=== PATIENT | female | born 1935 | race Asian ===

== ENCOUNTER 2017-02-09 20:52 | Inpatient (IN) | payer MEDICARE, MEDICAID ==
[~2017-02-09] VITALS: Ht 162.6 cm; Wt 62.8 kg
[~2017-02-09 20:52] MED LIST: AMLO5TAB2 PO; ASPI325T4 PO; CARV-39 PO; DOCU240C53 PO; HYDR12.58 PO; LISI-170 PO; OXYB5TAB7 PO; SODI650T PO
[2017-02-09] MEDS ORDERED: TRAM50TA2 PO (21:26)
[2017-02-09] MEDS ORDERED: SODIUM CHLORIDE 0.9% 1,000 ML IV ONE (21:38)
[2017-02-09] MEDS ORDERED: ONDANSETRON 2MG/ML, 2ML ONE (21:46)
[2017-02-09] MEDS ORDERED: SODIUM CHLORIDE FLUSH 10ML SYR IVF ONE (22:00)
[2017-02-09] MEDS ORDERED: ONDANSETRON 2MG/ML, 2ML IVPush ONE (22:00)
[2017-02-09 22:47] LABS: ASPARTATE AMINO TRANSFERASE 16 U/L (15-37); BLOOD UREA NITROGEN 11 mg/dL (7-18)
[2017-02-09 22:53] LABS: IS PT STATUS REG ER OR PRE ER? YES
[2017-02-09 22:57] LABS: PATH.CAST-FLAG NOT PRESENT; SPERM-FLAG NOT PRESENT; SRC-FLAG NOT PRESENT; XTAL-FLAG NOT PRESENT; YLC-FLAG NOT PRESENT
[2017-02-09] MEDS ORDERED: OMNIPAQUE 350 MG/ML, 100ML BOTTLE ONE (23:16)
[2017-02-10] MEDS ORDERED: POLYETHYLENE GLYCOL 17 GM PACKET PO PRN (01:30)
[2017-02-10] MEDS ORDERED: DOCUSATE 100 MG CAPSULE PO PRN (01:30)
[2017-02-10] MEDS ORDERED: ACETAMINOPHEN 325 MG TABLET PO PRN (01:30)
[2017-02-10] MEDS ORDERED: ENOXAPARIN 40 MG/0.4 ML SQ SCH (01:30)
[2017-02-10] MEDS ORDERED: ONDANSETRON 2MG/ML, 2ML IVP PRN (01:30)
[2017-02-10] MEDS ORDERED: BISACODYL 10 MG SUPP PR PRN (01:30)
[2017-02-10] MEDS ORDERED: NS + 20MEQ KCL 1,000 ML IV ONE (02:53)
[2017-02-10] MEDS ORDERED: MORPHINE SULFATE 4 MG/ML, 1ML ONE ×2 (03:12→11:43)
[2017-02-10] MEDS: NS + 20MEQ KCL 1,000 ML IV SCH ×2 (03:12→23:39)
[2017-02-10] MEDS: MORPHINE SULFATE 4 MG/ML, 1ML IVPush PRN ×5 (03:14→23:38)
[2017-02-10] MEDS: SODIUM BICARBONATE 650 MG TABLET PO SCH (10:55)
[2017-02-10] MEDS: OXYBUTYNIN CHLORIDE 5 MG TABLET PO SCH (10:55)
[2017-02-10] MEDS: CARVEDILOL 25 MG TABLET PO SCH ×2 (10:55→23:38)
[2017-02-10] MEDS: LISINOPRIL 20 MG TABLET PO SCH ×2 (10:56→23:39)
[2017-02-10] MEDS: AMLODIPINE 5 MG TABLET PO SCH ×2 (10:56→23:39)
[2017-02-10] MEDS ORDERED: ENOXAPARIN 40 MG/0.4 ML ONE (11:01)
[2017-02-10] MEDS ORDERED: OMNIPAQUE 350 MG/ML, 75ML BOTTLE ONE (11:40)
[2017-02-10] MEDS: OXYcodone IR 5MG TABLET PO PRN (19:58)
[2017-02-10 23:44] VITALS: BP 139/68
[2017-02-11] MEDS: MORPHINE SULFATE 4 MG/ML, 1ML IVPush PRN (02:43)
[2017-02-11 03:55] VITALS: BP 137/77
[2017-02-11 05:22] LABS: BLOOD UREA NITROGEN 16 mg/dL (7-18)
[2017-02-11 07:07] VITALS: BP 159/88
[2017-02-11] MEDS: OXYcodone IR 5MG TABLET PO PRN ×2 (10:17→21:24)
[2017-02-11] MEDS: AMLODIPINE 5 MG TABLET PO SCH ×2 (10:17→21:24)
[2017-02-11] MEDS: ENOXAPARIN 40 MG/0.4 ML SQ SCH (10:17)
[2017-02-11] MEDS: OXYBUTYNIN CHLORIDE 5 MG TABLET PO SCH (10:18)
[2017-02-11] MEDS: LISINOPRIL 20 MG TABLET PO SCH ×2 (10:18→21:24)
[2017-02-11] MEDS: SODIUM BICARBONATE 650 MG TABLET PO SCH (10:18)
[2017-02-11] MEDS: CARVEDILOL 25 MG TABLET PO SCH ×2 (10:18→21:24)
[2017-02-11 13:39] VITALS: BP 119/55
[2017-02-11 14:44] LABS: POTASSIUM,URINE RANDOM 21 mmol/L
[2017-02-11 19:26] VITALS: BP 154/69
[2017-02-12 03:46] VITALS: BP 160/77
[2017-02-12] MEDS: OXYcodone IR 5MG TABLET PO PRN ×5 (03:55→22:58)
[2017-02-12 04:45] LABS: BLOOD UREA NITROGEN 16 mg/dL (7-18)
[2017-02-12 07:06] VITALS: BP 141/65
[2017-02-12] MEDS ORDERED: POTASSIUM CHLORIDE 20 MEQ TAB.ER.PRT PO ONE (08:00)
[2017-02-12] MEDS: LISINOPRIL 20 MG TABLET PO SCH ×2 (08:43→22:57)
[2017-02-12] MEDS: CARVEDILOL 25 MG TABLET PO SCH ×2 (08:43→22:57)
[2017-02-12] MEDS: SODIUM BICARBONATE 650 MG TABLET PO SCH (08:43)
[2017-02-12] MEDS: OXYBUTYNIN CHLORIDE 5 MG TABLET PO SCH (08:43)
[2017-02-12] MEDS: AMLODIPINE 5 MG TABLET PO SCH ×2 (08:44→22:57)
[2017-02-12 12:43] VITALS: BP 112/58
[2017-02-12] MEDS: ENOXAPARIN 40 MG/0.4 ML SQ SCH (12:49)
[2017-02-12] MEDS ORDERED: POLYETHYLENE GLYCOL 17 GM PACKET PO PRN (15:30)
[2017-02-12 18:40] VITALS: BP 168/49
[2017-02-13 01:44] VITALS: BP 174/70
[2017-02-13 04:33] LABS: BLOOD UREA NITROGEN 19 mg/dL (7-18)
[2017-02-13 07:12] VITALS: BP 163/68
[2017-02-13] MEDS: AMLODIPINE 5 MG TABLET PO SCH ×2 (07:34→19:55)
[2017-02-13] MEDS: SENNA/DOCUSATE TABLET PO SCH (07:34)
[2017-02-13] MEDS: OXYcodone IR 5MG TABLET PO PRN ×4 (07:34→20:33)
[2017-02-13] MEDS: LISINOPRIL 20 MG TABLET PO SCH ×2 (07:34→19:55)
[2017-02-13] MEDS: OXYBUTYNIN CHLORIDE 5 MG TABLET PO SCH (07:34)
[2017-02-13] MEDS: SODIUM BICARBONATE 650 MG TABLET PO SCH (07:34)
[2017-02-13] MEDS: CARVEDILOL 25 MG TABLET PO SCH ×2 (07:35→19:55)
[2017-02-13] MEDS ORDERED: LACTULOSE 20 GM/30 ML UDC PO ONE (11:00)
[2017-02-13] MEDS: ENOXAPARIN 40 MG/0.4 ML SQ SCH (11:27)
[2017-02-13 14:00] VITALS: BP 145/66
[2017-02-13] MEDS ORDERED: GOLYTELY 4,000ML ORAL.SOL PO ONE (18:00)
[2017-02-13 19:56] VITALS: BP 152/70
[2017-02-14] VITALS (7 sets, daily range): BP systolic 122–169; BP diastolic 61–78
[2017-02-14 04:57] LABS: BLOOD UREA NITROGEN 13 mg/dL (7-18)
[2017-02-14] MEDS ORDERED: FENTANYL PF 250 MCG/5ML ONE (07:16)
[2017-02-14] MEDS ORDERED: KETAMINE 10 MG/ML, 20ML ONE (07:16)
[2017-02-14] MEDS ORDERED: NEOSTIGMINE 1 MG/ML, 10ML ONE (07:47)
[2017-02-14] MEDS ORDERED: GLYCOPYRROLATE 0.2MG/1ML ONE (07:47)
[2017-02-14] MEDS ORDERED: CEFAZOLIN 1,000 MG ONE (07:47)
[2017-02-14] MEDS ORDERED: LIDOCAINE 2% 100MG/5ML SYRINGE ONE (07:47)
[2017-02-14] MEDS ORDERED: ONDANSETRON 2MG/ML, 2ML ONE (07:47)
[2017-02-14] MEDS ORDERED: PHENYLEPHRINE 10 MG/ML ONE (07:47)
[2017-02-14] MEDS ORDERED: METOPROLOL 1 MG/ML, 5ML ONE (07:47)
[2017-02-14] MEDS ORDERED: PROPOFOL 10 MG/ML, 20ML ONE (07:47)
[2017-02-14] MEDS ORDERED: ROCURONIUM 10 MG/ML ONE (07:47)
[2017-02-14] MEDS: OXYBUTYNIN CHLORIDE 5 MG TABLET PO SCH (09:00)
[2017-02-14] MEDS: LISINOPRIL 20 MG TABLET PO SCH ×3 (09:00→22:41)
[2017-02-14] MEDS: CARVEDILOL 25 MG TABLET PO SCH ×2 (09:00→21:07)
[2017-02-14] MEDS: AMLODIPINE 5 MG TABLET PO SCH ×2 (09:00→21:06)
[2017-02-14] MEDS: SODIUM BICARBONATE 650 MG TABLET PO SCH (09:00)
[2017-02-14] MEDS: SENNA/DOCUSATE TABLET PO SCH (09:00)
[2017-02-14] MEDS ORDERED: KETOROLAC 30 MG/1 ML ONE (09:57)
[2017-02-14] MEDS ORDERED: OXYcodone 5 MG/5 ML ORAL.SOL UDC ONE (09:58)
[2017-02-14] MEDS: KETOROLAC 30 MG/1 ML IVPush PRN (09:59)
[2017-02-14] MEDS ORDERED: OXYcodone 5 MG/5 ML ORAL.SOL UDC PO PRN (10:00)
[2017-02-14] MEDS ORDERED: METOPROLOL 1 MG/ML, 5ML IV PRN (10:00)
[2017-02-14] MEDS ORDERED: OXYcodone/APAP 5/325MG TABLET PO PRN (10:00)
[2017-02-14] MEDS ORDERED: hydrALAzine 20 MG/ML, 1ML IV PRN (10:00)
[2017-02-14] MEDS ORDERED: PROMETHAZINE 25 MG/ML, 1ML IV PRN (10:00)
[2017-02-14] MEDS ORDERED: ONDANSETRON 2MG/ML, 2ML IVPush PRN ×2 (10:00)
[2017-02-14] MEDS ORDERED: LABETALOL 5MG/ML, 20ML IV PRN (10:00)
[2017-02-14] MEDS ORDERED: FENTANYL PF 100 MCG/2ML ONE (10:02)
[2017-02-14] MEDS: FENTANYL PF 100 MCG/2ML IV PRN ×2 (10:09→10:35)
[2017-02-14] MEDS ORDERED: HYDROmorphone 2 MG/ML, 1ML ONE (10:10)
[2017-02-14] MEDS: HYDROmorphone 1 MG/ML, 1ML IV PRN ×5 (10:19→10:54)
[2017-02-14] MEDS: morphine SULFATE 10 MG/ML, 1ML IVPush SCH ×4 (12:00→21:00)
[2017-02-14] MEDS: ENOXAPARIN 40 MG/0.4 ML SQ SCH (12:00)
[2017-02-14] MEDS: MORPHINE SULFATE 4 MG/ML, 1ML IVPush PRN ×3 (14:01→22:35)
[2017-02-14] MEDS: D5%-0.45NACL+KCL 20MEQ 1,000 ML IV SCH ×2 (14:07→23:32)
[2017-02-15] VITALS (7 sets, daily range): BP systolic 115–149; BP diastolic 51–69
[2017-02-15] MEDS: MORPHINE SULFATE 4 MG/ML, 1ML IVPush PRN ×5 (01:33→22:29)
[2017-02-15 05:24] LABS: BLOOD UREA NITROGEN 11 mg/dL (7-18)
[2017-02-15] MEDS: morphine SULFATE 10 MG/ML, 1ML IVPush SCH ×6 (06:45→21:00)
[2017-02-15] MEDS: SENNA/DOCUSATE TABLET PO SCH (09:00)
[2017-02-15] MEDS: CARVEDILOL 25 MG TABLET PO SCH ×2 (10:45→19:52)
[2017-02-15] MEDS: SODIUM BICARBONATE 650 MG TABLET PO SCH (10:46)
[2017-02-15] MEDS: OXYBUTYNIN CHLORIDE 5 MG TABLET PO SCH (10:46)
[2017-02-15] MEDS: AMLODIPINE 5 MG TABLET PO SCH ×2 (10:46→19:52)
[2017-02-15] MEDS: LISINOPRIL 20 MG TABLET PO SCH ×2 (10:47→19:52)
[2017-02-15] MEDS: ENOXAPARIN 40 MG/0.4 ML SQ SCH (12:00)
[2017-02-15] MEDS: KETOROLAC 30 MG/1 ML IVPush PRN ×2 (12:19→19:52)
[2017-02-15] MEDS: D5%-0.45NACL+KCL 20MEQ 1,000 ML IV SCH (15:25)
[2017-02-16] MEDS: D5%-0.45NACL+KCL 20MEQ 1,000 ML IV SCH ×2 (01:46→17:39)
[2017-02-16] MEDS: KETOROLAC 30 MG/1 ML IVPush PRN ×2 (02:41→15:05)
[2017-02-16 03:03] VITALS: BP 144/61
[2017-02-16] MEDS: MORPHINE SULFATE 4 MG/ML, 1ML IVPush PRN (04:14)
[2017-02-16] MEDS: morphine SULFATE 10 MG/ML, 1ML IVPush SCH ×2 (06:00→09:00)
[2017-02-16 07:21] VITALS: BP 132/69
[2017-02-16] MEDS: OXYBUTYNIN CHLORIDE 5 MG TABLET PO SCH (10:09)
[2017-02-16] MEDS: LISINOPRIL 20 MG TABLET PO SCH ×2 (10:09→21:55)
[2017-02-16] MEDS: AMLODIPINE 5 MG TABLET PO SCH ×2 (10:09→21:55)
[2017-02-16] MEDS: SODIUM BICARBONATE 650 MG TABLET PO SCH (10:10)
[2017-02-16] MEDS: CARVEDILOL 25 MG TABLET PO SCH ×2 (10:10→21:55)
[2017-02-16 13:42] VITALS: BP 121/54
[2017-02-16] MEDS: OXYcodone/APAP 5/325MG TABLET PO PRN ×2 (14:00→22:58)
[2017-02-16] MEDS ORDERED: OXYcodone/APAP 5/325MG TABLET PO PRN (15:00)
[2017-02-16 20:00] VITALS: BP 129/57
[2017-02-17] MEDS: OXYcodone/APAP 5/325MG TABLET PO PRN ×4 (01:21→20:59)
[2017-02-17] MEDS: KETOROLAC 30 MG/1 ML IVPush PRN (01:28)
[2017-02-17 02:00] VITALS: BP 165/72
[2017-02-17 07:36] VITALS: BP 135/67
[2017-02-17] MEDS: AMLODIPINE 5 MG TABLET PO SCH ×2 (08:21→20:54)
[2017-02-17] MEDS: OXYBUTYNIN CHLORIDE 5 MG TABLET PO SCH (08:21)
[2017-02-17] MEDS: LISINOPRIL 20 MG TABLET PO SCH ×2 (08:21→20:54)
[2017-02-17] MEDS: CARVEDILOL 25 MG TABLET PO SCH ×2 (08:22→20:54)
[2017-02-17] MEDS: SODIUM BICARBONATE 650 MG TABLET PO SCH (08:23)
[2017-02-17] MEDS: D5%-0.45NACL+KCL 20MEQ 1,000 ML IV SCH (12:10)
[2017-02-17 13:53] VITALS: BP 128/67
[2017-02-17 20:00] VITALS: BP 147/67
[2017-02-18] MEDS: OXYcodone/APAP 5/325MG TABLET PO PRN ×5 (00:18→21:36)
[2017-02-18] MEDS: D5%-0.45NACL+KCL 20MEQ 1,000 ML IV SCH ×2 (00:19→12:30)
[2017-02-18 01:00] VITALS: BP 131/65
[2017-02-18 04:59] LABS: BLOOD UREA NITROGEN 7 mg/dL (7-18)
[2017-02-18 06:42] VITALS: BP 143/67
[2017-02-18] MEDS: LISINOPRIL 20 MG TABLET PO SCH ×2 (09:11→20:35)
[2017-02-18] MEDS: OXYBUTYNIN CHLORIDE 5 MG TABLET PO SCH (09:11)
[2017-02-18] MEDS: CARVEDILOL 25 MG TABLET PO SCH ×2 (09:11→20:36)
[2017-02-18] MEDS: AMLODIPINE 5 MG TABLET PO SCH ×2 (09:12→20:36)
[2017-02-18] MEDS: SODIUM BICARBONATE 650 MG TABLET PO SCH (09:12)
[2017-02-18 14:02] VITALS: BP 136/64
[2017-02-18] MEDS ORDERED: DIPHENHYDRAMINE/ZINC CRM 2%, 30GM TP PRN (15:00)
[2017-02-18] MEDS ORDERED: DIPHENHYDRAMINE 50 MG/ML, 1ML IVPush PRN (15:00)
[2017-02-18] MEDS: KETOROLAC 30 MG/1 ML IVPush PRN (16:15)
[2017-02-18 19:03] VITALS: BP 149/69
[2017-02-19 02:03] VITALS: BP 112/57
[2017-02-19] MEDS: OXYcodone/APAP 5/325MG TABLET PO PRN ×4 (03:13→20:44)
[2017-02-19] MEDS: D5%-0.45NACL+KCL 20MEQ 1,000 ML IV SCH ×2 (03:15→14:50)
[2017-02-19 06:58] VITALS: BP 145/60
[2017-02-19] MEDS: LISINOPRIL 20 MG TABLET PO SCH ×2 (08:55→20:44)
[2017-02-19] MEDS: CARVEDILOL 25 MG TABLET PO SCH ×2 (08:55→20:44)
[2017-02-19] MEDS: SODIUM BICARBONATE 650 MG TABLET PO SCH (08:55)
[2017-02-19] MEDS: OXYBUTYNIN CHLORIDE 5 MG TABLET PO SCH (08:55)
[2017-02-19] MEDS: AMLODIPINE 5 MG TABLET PO SCH ×2 (08:55→20:44)
[2017-02-19] MEDS ORDERED: Oxycodone Hcl/Acetaminophen PO (09:55)
[2017-02-19 13:35] VITALS: BP 148/67
[2017-02-19 19:00] VITALS: BP 146/46
[2017-02-20 02:55] VITALS: BP 115/61
[2017-02-20] MEDS: OXYcodone/APAP 5/325MG TABLET PO PRN ×3 (05:04→13:43)
[2017-02-20 07:40] VITALS: BP 158/72
[2017-02-20] MEDS: SODIUM BICARBONATE 650 MG TABLET PO SCH (09:37)
[2017-02-20] MEDS: CARVEDILOL 25 MG TABLET PO SCH (09:37)
[2017-02-20] MEDS: AMLODIPINE 5 MG TABLET PO SCH (09:37)
[2017-02-20] MEDS: LISINOPRIL 20 MG TABLET PO SCH (09:37)
[2017-02-20] MEDS: OXYBUTYNIN CHLORIDE 5 MG TABLET PO SCH (09:37)
== END 2017-02-20 14:50 | disposition home or self-care (01) | DRG 742 ==
LOC: ED 23:59 → EDIP 02-10 00:40 → SUATTDRO 02-10 00:50 → 3NW 02-10 12:29
PROC: 0T9B70Z Drainage of Bladder with Drainage Device, Via Natural or Artificial Opening (ICD-10-PCS; 2017-02-10)
PROC: 0UTC0ZZ Resection of Cervix, Open Approach (ICD-10-PCS; 2017-02-14)
PROC: 0UT20ZZ Resection of Bilateral Ovaries, Open Approach (ICD-10-PCS; 2017-02-14)
PROC: 0UT70ZZ Resection of Bilateral Fallopian Tubes, Open Approach (ICD-10-PCS; 2017-02-14)
PROC: 0TQB0ZZ Repair Bladder, Open Approach (ICD-10-PCS; 2017-02-14)
PROC: 0UT90ZZ Resection of Uterus, Open Approach (ICD-10-PCS; principal; 2017-02-14 07:30)
DX: D25.9 Leiomyoma of uterus, unspecified (principal); E43 Unspecified severe protein-calorie malnutrition; E87.1 Hypo-osmolality and hyponatremia; E87.6 Hypokalemia; E86.0 Dehydration; I11.0 Hypertensive heart disease with heart failure; I50.9 Heart failure, unspecified; K57.30 Diverticulosis of large intestine without perforation or abscess without bleeding; E04.1 Nontoxic single thyroid nodule; H91.90 Unspecified hearing loss, unspecified ear; K59.00 Constipation, unspecified; M41.9 Scoliosis, unspecified; M51.36 Other intervertebral disc degeneration, lumbar region; N32.81 Overactive bladder; Z68.23 Body mass index [BMI] 23.0-23.9, adult; Z98.49 Cataract extraction status, unspecified eye
CPT/HCPCS: 36415; 71010; 71260; 74177; 76536; 80048; 80053; 81001; 82040; 82436; 83735; 83880; 83930; 83935; 84100; 84133; 84295; 84300; 84443; 84484; 85025; 85610; 85730; 86850; 86900; 88307; 93005; 93970; 96361; 96374; J0690; J1170; J1650; J1885; J2405; J2704; J2710; J3010; J3480; J3490; Q9967; C1765; J2270; J2370; J7030

== ENCOUNTER 2021-07-01 11:01 | Outpatient (CLI) | payer MEDICARE, MEDICAID ==
[~2021-07-01 11:01] MED LIST changes: +AMLO-150 PO; -AMLO5TAB2 PO; +ASPI325T17 PO; -ASPI325T4 PO; -HYDR12.58 PO; +HYDROCHLOROTH12.5 MG PO; +OXYB5TAB10 PO; -OXYB5TAB7 PO; +Oxycodone Hcl/Acetaminophen PO; +TRAM50TA2 PO
[2021-07-01 11:46] LABS: BASOPHILS % (AUTO) 1 % (0-1); EOSINOPHILS % (AUTO) 3 % (1-7); LYMPHOCYTES % (AUTO) 35 % (22-44); MEAN CORPUSCULAR HEMOGLOBIN 30.4 pg (27.0-34.8); MEAN CORPUSCULAR HGB CONC 32.6 g/dL (32.4-35.8); MEAN PLATELET VOLUME 7.6 fL (7.4-10.4); MICROSCOPIC AUTO; MONOCYTES % (AUTO) 8 % (2-9); NEUTROPHILS % (AUTO) 54 % (42-75); PLATELET COUNT 278 x10^3/uL (130-400); RED BLOOD COUNT 4.91 x10^6/uL (3.82-5.3); RED CELL DISTRIBUTION WIDTH 13.3 % (9.6-15.2)
[2021-07-01 11:53] LABS: ALANINE AMINOTRANSFERASE 23 U/L (12-78); ALBUMIN 3.8 g/dL (3.4-5.0); ANION GAP 4 mmol/L (5-15); CALCIUM 9.2 mg/dL (8.5-10.1); CHLORIDE 108 mmol/L (98-107); CHOLESTEROL, TOTAL 195 mg/dL (140-239); CREATININE 0.77 mg/dL (0.55-1.02)
[2021-07-01 12:03] LABS: ALKALINE PHOSPHATASE 121 U/L (45-117); BILIRUBIN,TOTAL 0.7 mg/dL (0.2-1.0); CHOL/HDL RATIO 3.8; HDL CHOL % 27 % (28-40); HDL CHOLESTEROL (DIRECT) 52 mg/dL (40-60); LDL CHOLESTEROL,CALCULATED 113 mg/dL (54-169); LDL/HDL RATIO 2.2 (0.5-3.0); TOTAL PROTEIN 8.4 g/dL (6.4-8.2); TRIGLYCERIDES 152 mg/dL (50-200); VLDL CHOLESTEROL 30 mg/dL (0-25)
== END 2021-07-01 23:59 | disposition home or self-care (01) ==
LOC: LAB 11:01
PROVIDERS: ATTEND Internal Medicine
DX: I11.9 Hypertensive heart disease without heart failure (principal); D89.2 Hypergammaglobulinemia, unspecified; E78.2 Mixed hyperlipidemia; E04.1 Nontoxic single thyroid nodule; M19.90 Unspecified osteoarthritis, unspecified site; M54.5 Low back pain; M79.622 Pain in left upper arm; N39.41 Urge incontinence; R05 Cough
CPT/HCPCS: 36415; 80053; 80061; 81001; 84443; 85025; 86376; 86800